=== PATIENT | male | born 1960 | race Caucasian/White ===

== ENCOUNTER 2019-02-09 22:14 | Inpatient (IN) | payer OTHER, SELFPAY | END 2019-02-13 10:45 | disposition home or self-care (01) | DRG 552 | PROVIDERS: Admitting Provider Internal Medicine; Emergency Provider Emergency Medicine; PCP Family Medicine Sports Medicine; Visit Provider Family Medicine | DX: M54.40 Lumbago with sciatica, unspecified side (principal); F17.210 Nicotine dependence, cigarettes, uncomplicated; J44.9 Chronic obstructive pulmonary disease, unspecified | CPT/HCPCS: 36415; 71046; 74177; 80048; 80076; 81001; 83605; 84484; 85025; 85027; 85652; 86141; 87040; 87077; 87086; 87088; 87186; 93005; 96361; 96365; 96374; 96375; 99285; A9270; J0692; J0696; J1885; J2270; J3010; J7030; Q9967 ==

== ENCOUNTER 2022-03-07 14:59 | Emergency (ER) | payer OTHER, SELFPAY ==
[2022-03-07 15:02] VITALS: BP 119/75; PULSE 80; RESP 16; TEMP 36.6; O2SAT 99
[2022-03-07 15:14] LABS: Basophils Percent Auto 0.3 % (0.2-1.2); Eosinophils Absolute Auto 0.1 K/mm3 (0-0.3); Hemoglobin 13.9 g/dL (14.0-18.0); Immature Granulocyte Absolute 0.04 K/mm3 (0.00-0.031); Immature Granulocyte Percent A 0.3 % (0-0.5); Lymphocytes Absolute Auto 2.89 K/mm3 (0.9-3.2); Lymphocytes Percent Auto 24.6 % (18.3-44.2); Mean Corpuscular HGB Conc 33.1 g/dl (32-36); Mean Corpuscular Hemoglobin 31.2 pg (26-34); Mean Corpuscular Volume 94.2 fl (80-100); Mean Platelet Volume 9.6 fl (7.4-10.4); Monocytes Absolute Auto 0.9 K/mm3 (0.1-0.6); Monocytes Percent Auto 7.3 % (2.6-8.5); Neutrophils Absolute Auto 7.8 K/mm3 (1.3-6.7); Neutrophils Percent Auto 66.5 % (45.5-73.1); Platelet Count Result 219 k/mm3 (150-375); Red Blood Count 4.46 M/mm3 (4.6-6.20); Red Cell Distribution Width 13.2 % (11.5-14.5); White Blood Count 11.8 K/mm3 (4.5-10.0)
[2022-03-07 15:23] LABS: Alanine Aminotransferase 18 U/L (6-50); Albumin Level 4.1 g/dL (3.5-5.1); Alkaline Phosphatase 68 U/L (38-126); Anion Gap 4 mmol/L (8-16); Aspartate Amino Transferase 27 U/L (17-59); Bilirubin,Total 0.2 mg/dL (0.2-1.3); Blood Urea Nitrogen 16 mg/dL (9-20); Calcium 8.8 mg/dL (8.4-10.2); Carbon Dioxide 23 mmol/L (22-30); Chloride 110 mmol/L (98-107); Estimated CRCL calculation 64 ml/min; Estimated Glomerular Filt Rate > 60; Glucose 103 mg/dL (65-110); Potassium 4.2 mmol/L (3.4-5.0); Sodium 137 mmol/L (137-145)
[2022-03-07 16:02] VITALS: BP 119/94
--- NOTE | 2022-03-07 16:29 | PC.NURSE ---
patient to nurse station at this time. pt states that he no longer wants to wait and wants to go home. pt is adamant about leaving. discussion held with patient about risks of leaving and the concerns of his symptoms. pt voiced an understanding and stated that he would call EMS if any symptoms should get worse. pt ambulated out department with a steady gait.
--- NOTE | 2022-03-07 16:40 | ED_ITS ---
HPI - Recheck/Abnormal Lab/Rx General Chief Complaint: Recheck/Abnormal Lab/Rx Stated Complaint: High Blood Pressure, Headache Time Seen by Provider: 03/07/22 16:27 Related Data Allergies Allergy/AdvReac Type Severity Reaction Status Date / Time No Known Allergies Allergy Unverified 02/09/19 22:25 Course Vital Signs Vital signs: Vital Signs Temperature 36.6 C 03/07/22 15:02 Pulse Rate 80 03/07/22 15:02 Respiratory Rate 16 03/07/22 15:02 Blood Pressure 119/75 03/07/22 15:02 Pulse Oximetry 99 03/07/22 15:02 Oxygen Delivery Room Air 03/07/22 15:02 Temperature 36.6 C 03/07/22 15:02 Pulse Rate 80 03/07/22 15:02 Respiratory Rate 16 03/07/22 15:02 Blood Pressure 119/94 H 03/07/22 16:02 Pulse Oximetry 99 03/07/22 15:02 Oxygen Delivery Room Air 03/07/22 15:02 MDM - Recheck/Abnormal Lab/Rx Lab Data Result diagrams: 03/07/22 15:07 03/07/22 15:07 Labs: Lab Results 03/07/22 03/07/22 Range/Units 15:07 15:07 WBC 11.8 H (4.5-10.0) K/mm3 RBC 4.46 L (4.6-6.20) M/mm3 Hgb 13.9 L (14.0-18.0) g/dL Hct 42.0 (42.0-52.0) % MCV 94.2 (80-100) fl MCH 31.2 (26-34) pg MCHC 33.1 (32-36) g/dl RDW 13.2 (11.5-14.5) % Plt Count 219 (150-375) k/mm3 MPV 9.6 (7.4-10.4) fl Immature Gran % (Auto) 0.3 (0-0.5) % Neut % (Auto) 66.5 (45.5-73.1) % Lymph % (Auto) 24.6 (18.3-44.2) % [place] % (Auto) 7.3 (2.6-8.5) % Eos % (Auto) 1.0 (0-4.4) % Baso % (Auto) 0.3 (0.2-1.2) % Lymph # (Auto) 2.89 (0.9-3.2) K/mm3 [place] # (Auto) 0.9 H (0.1-0.6) K/mm3 Eos # (Auto) 0.1 (0-0.3) K/mm3 Baso # (Auto) 0.0 (0.0-0.1) K/mm3 Abs Immat Gran (auto) 0.04 H (0.00-0.031) K/mm3 Absolute Neuts (auto) 7.8 H (1.3-6.7) K/mm3 Absolute Nucleated RBC 0.0 (0.0-0.012) K/mm3 Nucleated RBC % 0.0 (0.0-0.2) % Sodium 137 (137-145) mmol/L Potassium 4.2 (3.4-5.0) mmol/L Chloride 110 H (98-107) mmol/L Carbon Dioxide 23 (22-30) mmol/L Anion Gap 4 L (8-16) mmol/L BUN 16 (9-20) mg/dL Creatinine 1.00 (0.7-1.3) mg/dL Estim Creat Clear Calc 64 ml/min Estimated GFR > 60 (59 - ) Glucose 103 (65-110) mg/dL Calcium 8.8 (8.4-10.2) mg/dL Total Bilirubin 0.2 (0.2-1.3) mg/dL AST 27 (17-59) U/L ALT 18 (6-50) U/L Alkaline Phosphatase 68 (38-126) U/L Total Protein 7.0 (6.3-8.2) g/dL Albumin 4.1 (3.5-5.1) g/dL Discharge Plan Discharge Patient Disposition: Left Without Being Seen Additional Instructions: Patient left without being seen by the physician Follow-up/Referrals: Joseph,Kush Reid MD [Primary Care Provider] -
== END 2022-03-07 16:49 | disposition left against medical advice (07) ==
PROVIDERS: Emergency Provider Emergency Medicine; PCP Family Medicine Sports Medicine
DX: Z53.21 Procedure and treatment not carried out due to patient leaving prior to being seen by health care provider (principal); R51.9 Headache, unspecified
CPT/HCPCS: 36415; 80053; 85025; 99199